=== PATIENT | male | born 1955 ===

== ENCOUNTER 2018-01-28 01:32 | Inpatient (IN) | payer BC ==
[2016-06-20 16:44] VITALS: Ht 185.4 cm; Wt 114.0 kg
[2018-01-27 15:09] LABS: INR 0.98
[~2018-01-28] VITALS: Ht 185.4 cm; Wt 114.0 kg
[2018-01-28] VITALS (12 sets, daily range): BP systolic 112–155; BP diastolic 68–100
[~2018-01-28 01:32] MED LIST: ASPI-757 PO; ASPI1TAB PO; BACITRACIN 50000 UNIT/VIAL 100,000 UNIT in NS 0.9% 3000 ML IRRIGATION BAG 3,000 ML IR ONE; CLINDAMYCIN(*) 900 MG/NS 50 ML 50 ML IVPB ONE; FAMOTIDINE 20 MG TAB PO ONE; HYDR-2966 PO; LIDOCAINE/SOD BICARB 8.4% SYR ID ONE; MIDAZOLAM 2 MG/2 ML VIAL IVP PRN; NORMOSOL R SOLN(*) 1000 ML BAG 1,000 ML IV PRN; OXYC-865 PO; SULF500T48 PO; TRANEXAMIC AC 1000 MG/10ML SDV 1,000 MG in DEXTROSE 5% 50 ML BAG 50 ML IV ONE; cloNIDine EPIDUR INJ 100MCG/ML 40 MCG, ROPIVACAINE 0.5% 20 ML VIAL 25 ML, EPINEPHrine H... INJ ONE
[2018-01-28] MEDS ORDERED: DEXAMETHASONE SOD 4 MG/ML VIAL ONE (09:50)
[2018-01-28] MEDS ORDERED: ONDANSETRON 4 MG/2 ML VIAL ONE (09:50)
[2018-01-28] MEDS ORDERED: PROPOFOL EMUL(*) 10MG/ML 20 ML 20 ML ONE (09:50)
[2018-01-28] MEDS ORDERED: LIDOCAINE MPF 1% 5 ML VIAL ONE (09:50)
[2018-01-28] MEDS ORDERED: NORMOSOL R SOLN(*) 1000 ML BAG 1,000 ML IV PRN (10:00)
[2018-01-28] MEDS ORDERED: cloNIDine EPIDUR INJ 100MCG/ML 40 MCG, ROPIVACAINE 0.5% 20 ML VIAL 25 ML, EPINEPHrine H... INJ ONE (10:00)
[2018-01-28] MEDS ORDERED: TRANEXAMIC AC 1000 MG/10ML SDV 1,000 MG in DEXTROSE 5% 50 ML BAG 50 ML IV ONE (10:00)
[2018-01-28] MEDS ORDERED: FAMOTIDINE 20 MG TAB PO ONE (10:00)
[2018-01-28] MEDS ORDERED: BACITRACIN 50000 UNIT/VIAL 100,000 UNIT in NS 0.9% 3000 ML IRRIGATION BAG 3,000 ML IR ONE (10:00)
[2018-01-28] MEDS ORDERED: CLINDAMYCIN(*) 900 MG/NS 50 ML 50 ML IVPB ONE (10:00)
[2018-01-28] MEDS ORDERED: LIDOCAINE/SOD BICARB 8.4% SYR ID ONE (10:00)
[2018-01-28] MEDS ORDERED: MIDAZOLAM 2 MG/2 ML VIAL IVP PRN (10:00)
[2018-01-28] MEDS ORDERED: fentaNYL CITR 100 MCG/2 ML AMP ONE (11:36)
[2018-01-28] MEDS ORDERED: METOCLOPRAMIDE 10 MG/2 ML SDV ONE (11:53)
--- NOTE | 2018-01-28 15:06 | RADIOLOGY IMAGING REPORT ---
FACILITY: [facility] PATIENT NAME: Tate Lees : 1955 MR: [id number] V: [id number] EXAM DATE: ORDERING PHYSICIAN: CINTHYA MCKENZIE TECHNOLOGIST: Location: [facility] [place] Patient: Tate Lees : 1955 Visit/Account:[id number] Date of Sevice: 01/28/2018 Exam type: 2 views right knee History: Right knee arthroplasty Comparison: None. Findings: Postoperative changes are noted from right knee arthroplasty. No hardware complication is seen. Air is noted in the joint space presumably from recent surgery. IMPRESSION: 1. Postoperative changes are noted from recent right knee arthroplasty described above. No hardware complication seen. Report Dictated By: Gonzalo Hernández MD at 01/28/2018 2:58 PM Report E-Signed By: Gonzalo Hernández MD at 01/28/2018 3:00 PM WSN:DK
[2018-01-28] MEDS ORDERED: HYDROmorphone HCL 2 MG/ML SDV IVP PRN (15:50)
[2018-01-28] MEDS ORDERED: ONDANSETRON 4 MG/2 ML VIAL IVP PRN (15:50)
[2018-01-28] MEDS ORDERED: BISACODYL 10 MG SUPP PR PRN (15:50)
[2018-01-28] MEDS ORDERED: MAGNESIUM HYDROXIDE* 30ML UDCP PO PRN (15:50)
[2018-01-28] MEDS ORDERED: PROMETHAZINE 25 MG/ML 1 ML AMP IVP PRN (15:50)
[2018-01-28] MEDS ORDERED: diphenhydrAMINE 25 MG CAP PO PRN (15:50)
[2018-01-28] MEDS ORDERED: diphenhydrAMINE 50 MG/ML VIAL IVP PRN (15:50)
[2018-01-28] MEDS ORDERED: FLUSH 10 ML SYR IVP PRN (15:50)
[2018-01-28] MEDS ORDERED: MAGNESIUM CITRATE 300 ML BTL PO PRN (15:50)
[2018-01-28] MEDS ORDERED: LR 1000 ML BAG 1000 ML IV PRN (15:50)
[2018-01-28] MEDS ORDERED: ZOLPIDEM TARTRATE 5 MG TAB PO PRN (15:50)
--- NOTE | 2018-01-28 16:36 | Hospitalist Progress Note ---
Subjective Progress Notes Subjective Patient seen post-op. He reports doing well. No CP/SOB/N/V. Reviewed PMHx (HTN, UC) and medications (HCTZ, sulfasalazine). Physical Exam Vital Signs Date Time Temp Pulse Resp B/P (MAP) Pulse Ox O2 Delivery O2 Flow Rate FiO2 01/28/18 16:27 81 01/28/18 16:15 59 133/99 (110) 01/28/18 15:57 Nasal Cannula 2.0 01/28/18 15:51 96.9 18 Intake and Output 01/29/18 07:00 Intake Total 1940 ml Balance 1940 ml Intake Oral 240 ml IV Total 1700 ml General Appearance: Alert, Awake Cardiovascular: Regular Rate and Rhythm Respiratory: Clear to Auscultation Psych: Alert & Oriented X3 Assessment and Plan Problems: (1) S/P knee replacement Status: Acute Assessment & Plan: He appears to be stable post-op. He has no history of DVT/ PE. He will be on aspirin for DVT prophylaxis. (2) HTN (hypertension) Status: Chronic Assessment & Plan: He has been managed with HCTZ 50mg daily. Will monitor BPs and resume medication as needed. (3) Ulcerative colitis Status: Chronic Assessment & Plan: Continue sulfasalazine. Exam Sepsis Risk: No Definite Risk MARVIN GARCIA MD Jan 28, 2018 16:36
[2018-01-28] MEDS: sulfaSALAzine 500 MG TAB PO SCH (20:26)
[2018-01-28] MEDS: CLINDAMYCIN 150 MG CAP PO SCH (20:26)
[2018-01-28] MEDS ORDERED: ASPIRIN 325 MG TAB PO ONE (21:00)
[2018-01-28] MEDS ORDERED: ASPIRIN 325 MG TAB PO SCH (21:00)
--- NOTE | 2018-01-28 22:27 | OPERATIVE REPORT 1 ---
EVENT DATE: January 28, 2018 SURGEON: Bryant Lucas MD ANESTHESIOLOGIST: Kev Gold MD ANESTHESIA: General anesthesia plus a spinal. LAY OUT MACHINE OPERATOR: ESTHELA Darnell PREOPERATIVE DIAGNOSIS Right knee osteoarthritis. POSTOPERATIVE DIAGNOSIS Right knee osteoarthritis. PROCEDURE PERFORMED Right total knee arthroplasty. FINDINGS The patient had a significant amount of arthritic changes associated with his knee, but was amenable for a total knee arthroplasty. ESTIMATED BLOOD LOSS About 150 mL. DRAINS None. COMPLICATIONS None. TOURNIQUET TIME About 17 minutes, dropped during instrumentation. IMPLANTS USED [employer] Attune size 7 femur which was a posterior stabilized 7 femur with a 7 x 5 rotating platform, a 7 x 6 posterior stabilized poly liner, as well as a 6 tibial tray and 38 anatomic patella. SPECIMENS None. INDICATIONS AND HISTORY This patient is a 62-year-old male who presented to my clinic for evaluation of right knee pain and irritation. He had bilateral knee arthritis going on for some time. We had replaced his left knee previously, and he wanted to go ahead with the right knee at this time as he had continued pain and problems and failed conservative management. So therefore, we got him set up to do a right total knee arthroplasty today, January 28, 2018. The risks and benefits were discussed with the patient, and informed consent was obtained at the last clinic visit. DESCRIPTION OF PROCEDURE As the patient was brought into the operating room, he and the procedure were both verified. He was placed supine on the operating table and induced and intubated by Anesthesia. The right lower extremity was then prepped and draped in the usual fashion. A timeout was observed verifying the correct patient and procedure. It should be noted that the patient had a spinal prior to intubation. After making an incision over the anterior aspect of the knee, I was able to take it through the skin and subcutaneous tissue, and I was able to identify a medial parapatellar approach. Once I was able to identify the parapatellar approach after cauterizing bleeders all the way down, I then able to make a median parapatellar approach around the medial aspect of the patella and then get into the intra-articular portion of the knee itself. This was when there was noted to be a significant amount of synovitic fluid and some loose bodies throughout the area. I then removed the patellar fat pad and also some of the synovitis over the superior aspect of the femur. I then was able to peel back the medial side a little bit in order to gain access to the intra-articular portion. I then everted the patella and flexed the knee into high flexion. Once in the high flexion, I removed ACL and PCL without any major difficulty. I was then able to drill intramedullary into the femur and then use the intramedullary guide set on 5 and 9 from the [employer] system, and then I was able to cut the distal femur without any difficulties using the standard cutting block. This was then followed by measuring the distal femur to a 7, which was the size of the contralateral leg also. I then put in the 7 four-in- one cutting block, and I was able to cut the anterior, posterior, and chamfer cuts without major difficulty. I then put in the notch cutting block and cut the notch without any major issues. Once I was able to do this, I was then able to take off some of the posterior osteophytes and take an osteotome to the posterior aspect to release some of the capsule in this area. I then was able to subluxate the tibial anteriorly after removing the rest of the meniscus and the soft tissue in this back area and the rest of the PCL that had some residual issues. I then drilled the intramedullary into the tibia and then used the intramedullary guide from the [employer] system once again. I then was able to cut a couple millimeters off the medial side using the standard slot guide and then was able to remove the proximal tibia without any major difficulty. I then had to freshen up a couple cuts and remove some osteophytes off the medial side. Once I did this, I then was able to place the tibial tray , which the 6 tibial tray fit best, and it was well aligned with the alignment chuck. So therefore, I then pinned this in place. I prepared the rest of the tibia with the alignment tower and then was able to put the trial tibia on without any major issues. I then trialed a 5 mm poly, and this had excellent stability associated with it with anterior drawer type test as well as varus and valgus. It had excellent flexion and extension. I went all the way through full extension, and the patella tracked well, and so these were the final components chosen for the femoral and the tibial components. I then everted the patella and then was able to cut some of the fat around this area. I then cut off 9.5 mm of the patella and then put on the 38 anatomic patella. This then tracked well and had no signs of skipping or issues, and so therefore, this was the final component chosen also. I then mixed the cement. I prepped the femoral and tibial canals, and then after putting an Esmarch around the leg, I was able to inflate the tourniquet and then cement the components in place without any major issues. We waited until the cement hardened, then let the tourniquet down, and then was able to flex and extend the knee all any major issues. There was excellent stability associated within high flexion. This was then followed by irrigation with copious amounts of saline which we had throughout the case with pulsatile lavage , and then I closed the median parapatellar approach with a #2 Stratafix, followed by subcuticular 4-0 running Monocryl and then a bio-occlusive dressing over the top. He was then wrapped in a long sterile dressing, and then the patient was awakened, extubated, and transferred to the PACU in stable condition. TAI
[2018-01-29 04:41] VITALS: BP 140/85
[2018-01-29] MEDS: CLINDAMYCIN 150 MG CAP PO SCH (04:41)
[2018-01-29 07:17] VITALS: BP 141/95
[2018-01-29] MEDS ORDERED: HYDROCHLOROTHIAZIDE 25 MG TAB PO SCH ×2 (09:00)
[2018-01-29] MEDS ORDERED: ASPIRIN 325 MG TAB PO SCH (09:00)
[2018-01-29] MEDS: sulfaSALAzine 500 MG TAB PO SCH (09:18)
[2018-01-29 09:50] VITALS: BP 141/95
[2018-01-29] MEDS ORDERED: ASPI-757 PO (09:51)
--- NOTE | 2018-01-29 10:01 | Hospitalist Progress Note ---
Subjective Progress Notes Subjective He has no complaints this morning. He wants to go home. Patient Complains of: Cardiovascular: No: Chest Pain Respiratory: No: Shortness of Breath Physical Exam Vital Signs Date Time Temp Pulse Resp B/P (MAP) Pulse Ox O2 Delivery O2 Flow Rate FiO2 01/29/18 08:32 79 01/29/18 07:17 Nasal Cannula 2.0 01/29/18 07:17 97.7 71 16 141/95 (110) Intake and Output 01/30/18 07:00 Intake Total 220 ml Balance 220 ml Intake Oral 220 ml # Voids 1 General Appearance: Alert, Awake, No Acute Distress, Afebrile Cardiovascular: Regular Rate and Rhythm Respiratory: No Respiratory Distress, Clear to Auscultation Psych: Alert & Oriented X3, Appropriate Mood & Affect Result Diagram: 01/29/1852101/29/18521 Assessment and Plan Problems: (1) S/P knee replacement Status: Acute Assessment & Plan: He appears to be stable post-op. He has no history of DVT/ PE. He will be on aspirin for DVT prophylaxis. (2) HTN (hypertension) Status: Chronic Assessment & Plan: He has been managed with HCTZ 50mg daily. He will continue to monitor his blood pressure at home. He will take only half his dose of HCTZ the first two days. (3) Ulcerative colitis Status: Chronic Assessment & Plan: Continue sulfasalazine. Exam Sepsis Risk: No Definite Risk MERLE NELSON [employer]KTOP SUPPORT ASSOCIATE Jan 29, 2018 10:01
[2018-01-29] MEDS ORDERED: OXYC-865 PO (10:02)
== END 2018-01-29 10:45 | disposition home or self-care (01) | DRG 470 ==
LOC: OR 01:32 → MED 15:45 → OBSVTOIN 15:45 → INTOOBSV 15:45
PROVIDERS: ADMIT Orthopaedic Surgery; ATTEND Orthopaedic Surgery
PROC: 0SRC0J9 Replacement of Right Knee Joint with Synthetic Substitute, Cemented, Open Approach (ICD-10-PCS; principal; 2018-01-28 11:55)
DX: M17.11 Unilateral primary osteoarthritis, right knee (principal); K51.90 Ulcerative colitis, unspecified, without complications; I10 Essential (primary) hypertension; M06.9 Rheumatoid arthritis, unspecified; E66.9 Obesity, unspecified; G89.29 Other chronic pain; Z96.652 Presence of left artificial knee joint; Z88.0 Allergy status to penicillin; Z98.890 Other specified postprocedural states; Z79.82 Long term (current) use of aspirin; Z79.1 Long term (current) use of non-steroidal anti-inflammatories (NSAID); Z86.69 Personal history of other diseases of the nervous system and sense organs; Z68.33 Body mass index [BMI] 33.0-33.9, adult
CPT/HCPCS: 36415; 82310; 82374; 82435; 82565; 82947; 84132; 84295; 84520; 85014; 85018; 85610; 86850; 86900; 86901; 97161; J0171; J0735; J1100; J1170; J1885; J2001; J2250; J2405; J2704; J2765; J2795; J3010; J3490; J7050; J7060